=== PATIENT | female | born 1995 | race Caucasian/White ===

== ENCOUNTER 2017-07-24 11:48 | Day surgery (SDC) | payer BC ==
[2017-07-24] MEDS ORDERED: PROPOFOL 60 ML (17:17)
== END 2017-07-24 18:23 | disposition home or self-care (01) ==
LOC: GIL 11:48
DX: K62.89 Other specified diseases of anus and rectum (principal); K57.90 Diverticulosis of intestine, part unspecified, without perforation or abscess without bleeding
CPT/HCPCS: 45378; 84703; 88305

== ENCOUNTER 2017-09-30 13:15 | Day surgery (SDC) | payer BC ==
[2017-09-30] MEDS ORDERED: PROPOFOL 40 ML (15:12)
[2017-09-30] MEDS ORDERED: LIDOCAINE 2% (SDV) 5 ML INJ (15:12)
== END 2017-09-30 16:01 | disposition home or self-care (01) ==
LOC: GIL 13:15
DX: K29.50 Unspecified chronic gastritis without bleeding (principal)
CPT/HCPCS: 43239; 84703; 88305; 88312